=== PATIENT | male | born 1950 | race Caucasian/White ===

== ENCOUNTER 2018-09-08 09:54 | Outpatient (REF) | payer MEDICARE, OTHER, SELFPAY ==
[2018-09-08 19:44] LABS: Anion Gap 14.2 mmol/L (3-11); BUN 22 mg/dL (7-18); CO2 19.8 mmol/L (21.0-32.0); CREATININE 1.64 mg/dL (0.70-1.30); Calcium 9.4 mg/dL (8.5-10.1); Chloride 104 mmol/L (98-107); Estimated GFR 42.11 (mL/min/1.73m2); Glucose 230 mg/dL (70-100); Potassium 5.1 mmol/L (3.5-5.1); Sodium 138 mmol/L (136-145)
== END 2018-09-08 10:14 ==
LOC: NCHCN 09:54
PROVIDERS: PCP Internal Medicine; Visit Provider Physician Assistant Medical
DX: N18.3 Chronic kidney disease, stage 3 (moderate) (principal)
CPT/HCPCS: 80048

== ENCOUNTER 2018-10-08 10:23 | Outpatient (REF) | payer MEDICARE, OTHER, SELFPAY ==
[2018-10-08 20:30] LABS: Anion Gap 12.9 mmol/L (3-11); BUN 25 mg/dL (7-18); CO2 26.1 mmol/L (21.0-32.0); Calcium 8.4 mg/dL (8.5-10.1); Chloride 101 mmol/L (98-107); Estimated GFR 50.55 (mL/min/1.73m2); Glucose 260 mg/dL (70-100); Potassium 3.8 mmol/L (3.5-5.1); Sodium 140 mmol/L (136-145)
== END 2018-10-08 10:43 ==
LOC: NCHCN 10:23
PROVIDERS: PCP Internal Medicine; Visit Provider Physician Assistant Medical
DX: N18.3 Chronic kidney disease, stage 3 (moderate) (principal)
CPT/HCPCS: 80048

== ENCOUNTER 2018-11-05 15:45 | Outpatient (REF) | payer MEDICARE, OTHER, SELFPAY ==
[2018-11-05 20:24] LABS: Anion Gap 10.9 mmol/L (3-11); BUN 23 mg/dL (7-18); CO2 26.1 mmol/L (21.0-32.0); CREATININE 1.61 mg/dL (0.70-1.30); Chloride 100 mmol/L (98-107); Estimated GFR 43.02 (mL/min/1.73m2); Glucose 372 mg/dL (70-100); Potassium 4.3 mmol/L (3.5-5.1); Sodium 137 mmol/L (136-145)
== END 2018-11-05 16:05 ==
LOC: NCHCN 15:45
PROVIDERS: PCP Internal Medicine; Visit Provider Physician Assistant Medical
DX: N18.3 Chronic kidney disease, stage 3 (moderate) (principal); E11.9 Type 2 diabetes mellitus without complications
CPT/HCPCS: 80048

== ENCOUNTER 2019-02-03 12:49 | Outpatient (REF) | payer MEDICARE, OTHER, SELFPAY ==
[2019-02-03 19:08] LABS: BUN 28 mg/dL (7-18); CREATININE 1.72 mg/dL (0.70-1.30); Calcium 8.7 mg/dL (8.5-10.1); Chloride 103 mmol/L (98-107); Estimated GFR 39.86 (mL/min/1.73m2); Glucose 271 mg/dL (70-100); Potassium 5.4 mmol/L (3.5-5.1); Sodium 137 mmol/L (136-145)
== END 2019-02-03 13:09 ==
LOC: NCHCN 12:49
PROVIDERS: PCP Internal Medicine; Visit Provider Physician Assistant Medical
DX: N18.3 Chronic kidney disease, stage 3 (moderate) (principal); E11.9 Type 2 diabetes mellitus without complications; I10 Essential (primary) hypertension; Z79.4 Long term (current) use of insulin
CPT/HCPCS: 80048

== ENCOUNTER 2019-04-22 11:30 | Outpatient (REF) | payer MEDICARE, OTHER, SELFPAY ==
[2019-04-22 20:27] LABS: BUN 17 mg/dL (7-18); CREATININE 1.12 mg/dL (0.70-1.30); Calcium 8.6 mg/dL (8.5-10.1); Chloride 105 mmol/L (98-107); Glucose 104 mg/dL (70-100); Potassium 3.4 mmol/L (3.5-5.1); Sodium 146 mmol/L (136-145)
== END 2019-04-22 11:50 ==
LOC: NCHCN 11:30
PROVIDERS: PCP Internal Medicine; Visit Provider Physician Assistant Medical
DX: N18.3 Chronic kidney disease, stage 3 (moderate) (principal); E11.8 Type 2 diabetes mellitus with unspecified complications; Z79.4 Long term (current) use of insulin
CPT/HCPCS: 80048

== ENCOUNTER 2019-07-23 12:12 | Outpatient (REF) | payer MEDICARE, OTHER, SELFPAY ==
[2019-07-23 19:49] LABS: BUN 13 mg/dL (7-18); CREATININE 1.35 mg/dL (0.70-1.30); Calcium 8.5 mg/dL (8.5-10.1); Chloride 104 mmol/L (98-107); Estimated GFR 52.56 (mL/min/1.73m2); Glucose 123 mg/dL (70-100); Potassium 4.1 mmol/L (3.5-5.1); Sodium 143 mmol/L (136-145); Uric Acid 6.7 mg/dL (3.5-7.2)
== END 2019-07-23 12:32 ==
LOC: NCHCN 12:12
PROVIDERS: PCP Internal Medicine; Visit Provider Nurse Practitioner Family
DX: E11.8 Type 2 diabetes mellitus with unspecified complications (principal); I10 Essential (primary) hypertension; M10.9 Gout, unspecified
CPT/HCPCS: 80048; 84550

== ENCOUNTER 2019-10-22 14:52 | Outpatient (REF) | payer MEDICARE, OTHER, SELFPAY ==
[2019-10-22 20:19] LABS: COMMENT (LAB VIEW ONLY) 186.61 mg/dL
[2019-10-22 20:24] LABS: ALT 35 U/L (16-63); AST 19 U/L (15-37); Albumin 3.5 g/dL (3.4-5.0); Alkaline Phosphatase 104 U/L (46-116); Anion Gap 12.3 mmol/L (3-11); BUN 19 mg/dL (7-18); Bilirubin, Total 0.5 mg/dL (0.2-1.0); CO2 28.7 mmol/L (21.0-32.0); CREATININE 1.33 mg/dL (0.70-1.30); Calcium 8.9 mg/dL (8.5-10.1); Calculated LDL 101 mg/dL; Chloride 104 mmol/L (98-107); Cholesterol 167 mg/dL (<200); Estimated GFR 53.47 (mL/min/1.73m2); Glucose 126 mg/dL (74-106); HDL Cholesterol 34 mg/dL (40-60); Microalb ug/mg Crea 111.6 ug/mg Cr; Potassium 3.6 mmol/L (3.5-5.1); Sodium 145 mmol/L (136-145); TSH (W/Ref FT4) 4.02 uIU/mL (0.36-3.74); Triglyceride 163 mg/dL (<150)
[2019-10-22 20:46] LABS: FREE T4 0.79 ng/dL (0.76-1.46)
== END 2019-10-22 15:12 ==
LOC: NCHCN 14:52
PROVIDERS: PCP Internal Medicine; Visit Provider Physician Assistant
DX: I10 Essential (primary) hypertension (principal); E11.8 Type 2 diabetes mellitus with unspecified complications; Z79.4 Long term (current) use of insulin
CPT/HCPCS: 80053; 80061; 82043; 82570; 84439; 84443

== ENCOUNTER 2020-03-30 12:00 | Outpatient (REF) | payer MEDICARE, OTHER, SELFPAY ==
[2020-03-30 19:57] LABS: Anion Gap 10.5 mmol/L (3-11); BUN 19 mg/dL (7-18); CO2 28.5 mmol/L (21.0-32.0); CREATININE 1.25 mg/dL (0.70-1.30); Calcium 8.5 mg/dL (8.5-10.1); Calculated LDL 91 mg/dL (<100); Chloride 103 mmol/L (98-107); Cholesterol 158 mg/dL (<200); Estimated GFR 57.27 (mL/min/1.73m2); Glucose 138 mg/dL (74-106); HDL Cholesterol 39 mg/dL (40-60); Potassium 3.4 mmol/L (3.5-5.1); Sodium 142 mmol/L (136-145); TSH (W/Ref FT4) 3.47 uIU/mL (0.36-3.74); Triglyceride 142 mg/dL (<150)
== END 2020-03-30 12:20 ==
LOC: NCHCN 12:00
PROVIDERS: PCP Internal Medicine; Visit Provider Physician Assistant
DX: E78.5 Hyperlipidemia, unspecified (principal); E03.9 Hypothyroidism, unspecified; E11.8 Type 2 diabetes mellitus with unspecified complications; Z79.4 Long term (current) use of insulin
CPT/HCPCS: 80048; 80061; 84443

== ENCOUNTER 2020-06-30 19:36 | Outpatient (REF) | payer MEDICARE, OTHER, SELFPAY ==
[2020-06-30 19:46] LABS: TSH (W/Ref FT4) 3.39 uIU/mL (0.36-3.74)
== END 2020-06-30 19:56 ==
LOC: NCHCN 19:36
PROVIDERS: PCP Internal Medicine; Visit Provider Physician Assistant
DX: E03.9 Hypothyroidism, unspecified (principal)
CPT/HCPCS: 84443

== ENCOUNTER 2020-09-29 20:55 | Outpatient (REF) | payer MEDICARE, OTHER, SELFPAY ==
[2020-09-29 20:05] LABS: TSH (W/Ref FT4) 2.53 uIU/mL (0.36-3.74)
== END 2020-09-29 21:15 ==
LOC: NCHCN 20:55
PROVIDERS: PCP Internal Medicine; Visit Provider Physician Assistant
DX: E03.9 Hypothyroidism, unspecified (principal)
CPT/HCPCS: 84443

== ENCOUNTER 2020-12-28 16:02 | Outpatient (REF) | payer MEDICARE, OTHER, SELFPAY ==
[2020-12-28 18:28] LABS: COMMENT (LAB VIEW ONLY) 72.53 mg/dL
== END 2020-12-28 16:03 | disposition home or self-care (01) ==
LOC: NCHCN 16:02
PROVIDERS: PCP Internal Medicine; Visit Provider Physician Assistant
DX: E11.8 Type 2 diabetes mellitus with unspecified complications (principal); Z79.4 Long term (current) use of insulin
CPT/HCPCS: 82043; 82570

== ENCOUNTER 2021-01-05 21:59 | Outpatient (REF) | payer MEDICARE, OTHER, SELFPAY ==
[2021-01-05 21:19] LABS: Bilirubin Negative (Negative); Blood Trace-lysed (Negative); Clarity Clear (Clear); Glucose 100 mg/dL (Negative); Ketones Negative (Negative); Leukocyte Esterase Negative (Negative); Nitrite Negative (Negative); Urobilinogen 0.2 EU/dL (Up TO 0.2); pH 6.5 (5-8)
[2021-01-05 21:21] LABS: ALT 56 U/L (16-63); AST 34 U/L (15-37); Albumin 3.2 g/dL (3.4-5.0); Alkaline Phosphatase 84 U/L (46-116); Anion Gap 9.7 mmol/L (3-11); BUN 27 mg/dL (7-18); Bilirubin, Total 0.5 mg/dL (0.2-1.0); CO2 30.3 mmol/L (21.0-32.0); CREATININE 1.7 mg/dL (0.70-1.30); Calcium 9.1 mg/dL (8.5-10.1); Chloride 104 mmol/L (98-107); Estimated GFR 40.16 (mL/min/1.73m2); Glucose 222 mg/dL (74-106); Potassium 3.5 mmol/L (3.5-5.1); Sodium 144 mmol/L (136-145); Total Protein 6.4 g/dL (6.4-8.2)
[2021-01-05 21:26] LABS: Bacteria Negative HPF (Negative); C & S Indicated? No; Casts Negative LPF (Negative); Crystals Negative HPF (Negative); Epithelial Cells Negative HPF (Negative); Mucus Negative (Negative); Other Cells Negative (Negative); RBC 0-2 HPF (0-2); WBC 0-2 HPF (0-5)
[2021-01-05 21:38] LABS: PROTEIN 308.3 mg/dL
[2021-01-05 21:44] LABS: COMMENT (LAB VIEW ONLY) 43.18 mg/dL; Prot/Crea Ur Ratio 7.13
[2021-01-09 09:07] LABS: C3 Complement 179 mg/dL (81-157); C4 Complement 43 mg/dL (13-39)
[2021-01-09 11:25] LABS: Hepatitis C Ab w Rflx HCV PCR Negative (Negative)
[2021-01-09 15:49] LABS: Albumin 55.2 % (55.8-66.1); Total Protein 6.1 g/dL (6.3-8.2)
[2021-01-09 16:02] LABS: Albumin, Urine % 72.7 %; Globulins, Urine % 27.3 %; Immunotyping, Urine (See Note); Total Protein Urine 433 mg/dL (See Note)
== END 2021-01-05 22:00 | disposition home or self-care (01) ==
LOC: NCHCN 21:59
PROVIDERS: PCP Internal Medicine; Visit Provider Physician Assistant
DX: R80.9 Proteinuria, unspecified (principal); E11.8 Type 2 diabetes mellitus with unspecified complications; Z79.4 Long term (current) use of insulin; N18.30 Chronic kidney disease, stage 3 unspecified
CPT/HCPCS: 80053; 84156; 84166; 86335; 86803; 81003; 81015; 82565; 84165; 86160

== ENCOUNTER 2021-01-10 03:45 | Outpatient (CLI) | payer MEDICARE, OTHER, SELFPAY ==
[2021-01-12 13:39] LABS: Cryoglobulin, S Negative %ppt (Negative)
== END 2021-01-10 03:46 | disposition home or self-care (01) ==
LOC: LBO 03:45
PROVIDERS: PCP Internal Medicine; Visit Provider Internal Medicine
DX: N04.9 Nephrotic syndrome with unspecified morphologic changes (principal)
CPT/HCPCS: 36415; 82595

== ENCOUNTER 2021-01-12 14:19 | Outpatient (REF) | payer MEDICARE, OTHER, SELFPAY ==
[2021-01-12 19:21] LABS: PROTEIN 186.4 mg/dL (0.0-11.9)
[2021-01-12 19:24] LABS: Total Volume 2800 ml
== END 2021-01-12 14:20 | disposition home or self-care (01) ==
LOC: NCHCN 14:19
PROVIDERS: Physician Assistant; PCP Internal Medicine; Visit Provider Internal Medicine
DX: N04.9 Nephrotic syndrome with unspecified morphologic changes (principal)
CPT/HCPCS: 81050; 84155

== ENCOUNTER 2021-05-12 19:55 | Outpatient (REF) | payer MEDICARE, OTHER, SELFPAY ==
[2021-05-12 20:51] LABS: Anion Gap 10.9 mmol/L (3-11); BUN 24 mg/dL (7-18); CO2 26.1 mmol/L (21.0-32.0); CREATININE 1.6 mg/dL (0.70-1.30); Calcium 9.3 mg/dL (8.5-10.1); Chloride 106 mmol/L (98-107); Estimated GFR 42.95 (mL/min/1.73m2); Glucose 177 mg/dL (74-106); Potassium 4.3 mmol/L (3.5-5.1); Sodium 143 mmol/L (136-145)
== END 2021-05-12 19:56 | disposition home or self-care (01) ==
LOC: LBN 19:55
PROVIDERS: PCP Internal Medicine; Visit Provider Internal Medicine Nephrology
DX: E78.5 Hyperlipidemia, unspecified (principal); M10.9 Gout, unspecified; R80.9 Proteinuria, unspecified; E66.9 Obesity, unspecified; N18.30 Chronic kidney disease, stage 3 unspecified; E11.21 Type 2 diabetes mellitus with diabetic nephropathy; Z79.4 Long term (current) use of insulin; E55.9 Vitamin D deficiency, unspecified
CPT/HCPCS: 80048

== ENCOUNTER 2021-10-26 18:24 | Outpatient (REF) | payer MEDICARE, OTHER, SELFPAY ==
[2021-10-26 19:44] LABS: Anion Gap 11.2 mmol/L (3-11); BUN 33 mg/dL (7-18); CO2 26.8 mmol/L (21.0-32.0); CREATININE 2.1 mg/dL (0.70-1.30); Chloride 103 mmol/L (98-107); Estimated GFR 31.38 (mL/min/1.73m2); Glucose 114 mg/dL (74-106); Potassium 4.4 mmol/L (3.5-5.1); Sodium 141 mmol/L (136-145); TSH (W/Ref FT4) 2.59 uIU/mL (0.36-3.74)
== END 2021-10-26 18:25 | disposition home or self-care (01) ==
LOC: NCHCN 18:24
PROVIDERS: PCP Internal Medicine; Visit Provider Physician Assistant
DX: I10 Essential (primary) hypertension (principal); E03.9 Hypothyroidism, unspecified
CPT/HCPCS: 80048; 84443

== ENCOUNTER 2022-07-24 15:40 | Outpatient (REF) | payer MEDICARE, OTHER, SELFPAY ==
[2022-07-24 19:08] LABS: ALT 66 U/L (16-63); AST 40 U/L (15-37); Albumin 3.7 g/dL (3.4-5.0); Alkaline Phosphatase 84 U/L (46-116); Anion Gap 10.8 mmol/L (3-11); BUN 34 mg/dL (7-18); Bilirubin, Total 0.7 mg/dL (0.2-1.0); CO2 27.2 mmol/L (21.0-32.0); Calcium 9.2 mg/dL (8.5-10.1); Chloride 104 mmol/L (98-107); Estimated GFR 35.02 (mL/min/1.73m2); Glucose 132 mg/dL (74-106); Potassium 4.2 mmol/L (3.5-5.1); Sodium 142 mmol/L (136-145); TSH (W/Ref FT4) 4.77 uIU/mL (0.36-3.74); Total Protein 7.3 g/dL (6.4-8.2)
[2022-07-24 19:41] LABS: FREE T4 1.08 ng/dL (0.76-1.46)
== END 2022-07-24 15:41 | disposition home or self-care (01) ==
LOC: NCHCN 15:40
PROVIDERS: PCP Internal Medicine; Visit Provider Physician Assistant
DX: I10 Essential (primary) hypertension (principal); E03.9 Hypothyroidism, unspecified; E11.8 Type 2 diabetes mellitus with unspecified complications; Z79.4 Long term (current) use of insulin
CPT/HCPCS: 80053; 84439; 84443

== ENCOUNTER 2022-10-24 09:13 | Outpatient (REF) | payer MEDICARE, OTHER, SELFPAY ==
[2022-10-24 22:08] LABS: TSH 3.54 uIU/mL (0.36-3.74)
== END 2022-10-24 09:14 | disposition home or self-care (01) ==
LOC: NCHCN 09:13
PROVIDERS: PCP Internal Medicine; Visit Provider Physician Assistant
DX: E03.9 Hypothyroidism, unspecified (principal); E11.8 Type 2 diabetes mellitus with unspecified complications; Z79.4 Long term (current) use of insulin; I10 Essential (primary) hypertension; N18.30 Chronic kidney disease, stage 3 unspecified
CPT/HCPCS: 84443

== ENCOUNTER 2022-11-19 13:37 | Outpatient (REF) | payer MEDICARE, OTHER, SELFPAY ==
[2022-11-19 19:07] LABS: HCT 41.3 % (40.0-50.0); HGB 13.7 g/dL (13.5-17.5); MCH 29.9 pg (27.0-33.0); MCHC 33.2 % (32.0-36.0); MCV 90 fL (80-95); MPV 11.9 fL (8.0-11.0); Platelet Count 229 10^3/uL (130-400); RBC 4.58 10^6/uL (4.36-5.78); RDW 13.6 % (11.8-14.1); RDW-SD 44.7 fL; WBC 8.47 10^3/uL (4.4-10.8)
[2022-11-19 19:17] LABS: Iron 65 ug/dL (65-175); Total Iron Binding Capacity 326 ug/dL (250-450); Transferrin Sat 20 % (20-55)
[2022-11-19 19:27] LABS: COMMENT (LAB VIEW ONLY) 18.11 mg/dL; PROTEIN < 6.0 mg/dL
[2022-11-19 19:35] LABS: Albumin 3.8 g/dL (3.4-5.0); PHOSPHORUS 3.9 mg/dL (2.6-4.7); Uric Acid 8.7 mg/dL (3.5-7.2)
[2022-11-19 19:42] LABS: Vitamin D 25 Total 30.3 ng/mL (30-100)
[2022-11-19 20:04] LABS: Calculated LDL 35 mg/dL (<100); Cholesterol 109 mg/dL (<200); Ferritin 145 ng/mL (26-388); HDL Cholesterol 42 mg/dL (40-60); Hemoglobin A1C 6.6 % (<5.7); Triglyceride 163 mg/dL (<150)
[2022-11-20 19:33] LABS: Parathyroid Hormone,Intact 134 pg/mL (19-88)
== END 2022-11-19 13:38 | disposition home or self-care (01) ==
LOC: NCHCN 13:37
PROVIDERS: PCP Internal Medicine; Visit Provider Physician Assistant
DX: E03.9 Hypothyroidism, unspecified (principal); E11.8 Type 2 diabetes mellitus with unspecified complications; R80.9 Proteinuria, unspecified; I10 Essential (primary) hypertension; E78.5 Hyperlipidemia, unspecified; M10.9 Gout, unspecified
CPT/HCPCS: 80061; 82306; 85027; 82040; 82565; 82728; 83036; 83540; 83550; 83970; 84100; 84156; 84550

== ENCOUNTER 2023-05-01 13:15 | Outpatient (REF) | payer MEDICARE, OTHER, SELFPAY ==
[2023-05-01 20:21] LABS: Abs Immature Grans 0.15 10^3/uL (0.0-0.06); Absolute Basophil Count 0.09 10^3/uL (0.0-0.2); Absolute Eosinophil Count 0.08 10^3/uL (0.0-0.7); Absolute Lymphocyte Count 2.31 10^3/uL (1.2-3.4); Absolute Neutrophil Count 7.99 10^3/uL (1.2-6.7); Basophils % 0.8; Eosinophils % 0.7; HCT 43.3 % (40.0-50.0); HGB 14.1 g/dL (13.5-17.5); Immature Grans % 1.3; Lymphocytes % 20.4; MCH 29.7 pg (27.0-33.0); MCHC 32.6 % (32.0-36.0); MCV 91 fL (80-95); MPV 12.1 fL (8.0-11.0); Monocytes % 6.2; Neutrophils % 70.6; Platelet Count 265 10^3/uL (130-400); RBC 4.74 10^6/uL (4.36-5.78); RDW 14.1 % (11.8-14.1); RDW-SD 47.8 fL; WBC 11.32 10^3/uL (4.4-10.8)
[2023-05-01 20:41] LABS: ALT 67 U/L (16-63); AST 43 U/L (15-37); Albumin 3.8 g/dL (3.4-5.0); Alkaline Phosphatase 74 U/L (46-116); Anion Gap 9.8 mmol/L (3-11); BUN 38 mg/dL (7-18); Bilirubin, Total 0.7 mg/dL (0.2-1.0); CO2 27.2 mmol/L (21.0-32.0); CREATININE 2.5 mg/dL (0.70-1.30); Calcium 9.3 mg/dL (8.5-10.1); Chloride 106 mmol/L (98-107); Estimated GFR 26.63 (mL/min/1.73m2); Glucose 157 mg/dL (74-106); Potassium 5.6 mmol/L (3.5-5.1); Sodium 143 mmol/L (136-145); TSH (W/Ref FT4) 4.71 uIU/mL (0.36-3.74); Total Protein 7.3 g/dL (6.4-8.2); Uric Acid 8.5 mg/dL (3.5-7.2)
[2023-05-01 20:58] LABS: FREE T4 0.97 ng/dL (0.76-1.46)
== END 2023-05-01 13:16 | disposition home or self-care (01) ==
LOC: NCHCN 13:15
PROVIDERS: PCP Internal Medicine; Visit Provider Physician Assistant
DX: I10 Essential (primary) hypertension (principal); M10.9 Gout, unspecified; E03.9 Hypothyroidism, unspecified
CPT/HCPCS: 80053; 84439; 84443; 84550; 85025

== ENCOUNTER 2023-05-15 11:28 | Outpatient (REF) | payer MEDICARE, OTHER, SELFPAY ==
[2023-05-15 20:36] LABS: Anion Gap 7.5 mmol/L (3-11); BUN 26 mg/dL (7-18); CO2 29.5 mmol/L (21.0-32.0); CREATININE 1.8 mg/dL (0.70-1.30); Calcium 8.4 mg/dL (8.5-10.1); Chloride 109 mmol/L (98-107); Glucose 108 mg/dL (74-106); Potassium 4.4 mmol/L (3.5-5.1); Sodium 146 mmol/L (136-145)
== END 2023-05-15 11:29 | disposition home or self-care (01) ==
LOC: NCHCN 11:28
PROVIDERS: PCP Internal Medicine; Visit Provider Physician Assistant
DX: E87.6 Hypokalemia (principal); N18.30 Chronic kidney disease, stage 3 unspecified
CPT/HCPCS: 80048

== ENCOUNTER 2023-06-18 13:40 | Outpatient (REF) | payer MEDICARE, OTHER, SELFPAY ==
[2023-06-18 19:56] LABS: Anion Gap 12.1 mmol/L (3-11); BUN 49 mg/dL (7-18); CO2 23.9 mmol/L (21.0-32.0); CREATININE 2.4 mg/dL (0.70-1.30); Calcium 8.8 mg/dL (8.5-10.1); Chloride 103 mmol/L (98-107); Estimated GFR 27.97 (mL/min/1.73m2); Glucose 175 mg/dL (74-106); Potassium 4.6 mmol/L (3.5-5.1); Sodium 139 mmol/L (136-145); Vitamin B12 436 pg/mL (193-986)
== END 2023-06-18 13:41 | disposition home or self-care (01) ==
LOC: NCHCN 13:40
PROVIDERS: PCP Internal Medicine; Visit Provider Physician Assistant
DX: E87.6 Hypokalemia (principal); N18.30 Chronic kidney disease, stage 3 unspecified; R53.83 Other fatigue; Z86.39 Personal history of other endocrine, nutritional and metabolic disease
CPT/HCPCS: 80048; 82607

== ENCOUNTER 2023-07-30 14:12 | Outpatient (REF) | payer MEDICARE, OTHER, SELFPAY ==
[2023-07-30 19:19] LABS: COMMENT (LAB VIEW ONLY) 51.15 mg/dL; PROTEIN < 6.0 mg/dL
[2023-07-30 19:35] LABS: Abs Immature Grans 0.13 10^3/uL (0.0-0.06); Absolute Basophil Count 0.07 10^3/uL (0.0-0.2); Absolute Eosinophil Count 0.09 10^3/uL (0.0-0.7); Absolute Lymphocyte Count 2.19 10^3/uL (1.2-3.4); Absolute Monocyte Count 0.58 10^3/uL (0.1-0.8); Basophils % 0.7; HCT 41.8 % (40.0-50.0); HGB 13.8 g/dL (13.5-17.5); Immature Grans % 1.4; Iron 76 ug/dL (65-175); Lymphocytes % 23.2; MCH 29.6 pg (27.0-33.0); MCV 90 fL (80-95); MPV 11.9 fL (8.0-11.0); Monocytes % 6.1; Neutrophils % 67.6; Platelet Count 244 10^3/uL (130-400); RBC 4.67 10^6/uL (4.36-5.78); RDW 14.6 % (11.8-14.1); RDW-SD 47.4 fL; Total Iron Binding Capacity 327 ug/dL (250-450); Transferrin Sat 23 % (20-55); WBC 9.46 10^3/uL (4.4-10.8)
[2023-07-30 19:56] LABS: ALT 57 U/L (16-63); AST 32 U/L (15-37); Albumin 3.6 g/dL (3.4-5.0); Alkaline Phosphatase 73 U/L (46-116); Anion Gap 11.1 mmol/L (3-11); BUN 52 mg/dL (7-18); Bilirubin, Total 0.6 mg/dL (0.2-1.0); CO2 22.9 mmol/L (21.0-32.0); CREATININE 2.4 mg/dL (0.70-1.30); Calcium 9.1 mg/dL (8.5-10.1); Calculated LDL 31 mg/dL (<100); Chloride 105 mmol/L (98-107); Cholesterol 99 mg/dL (<200); Estimated GFR 27.97 (mL/min/1.73m2); Ferritin 138 ng/mL (26-388); Glucose 152 mg/dL (74-106); HDL Cholesterol 39 mg/dL (40-60); PHOSPHORUS 3.8 mg/dL (2.6-4.7); Potassium 4.7 mmol/L (3.5-5.1); Sodium 139 mmol/L (136-145); TSH (W/Ref FT4) 2.92 uIU/mL (0.36-3.74); Total Protein 7.5 g/dL (6.4-8.2); Triglyceride 149 mg/dL (<150)
[2023-07-30 19:58] LABS: Vitamin D 25 Total 25.6 ng/mL (30-100)
[2023-07-30 20:08] LABS: Uric Acid 7.5 mg/dL (3.5-7.2)
[2023-07-31 19:56] LABS: Parathyroid Hormone,Intact 98 pg/mL (19-88)
== END 2023-07-30 14:13 | disposition home or self-care (01) ==
LOC: NCHCN 14:12
PROVIDERS: PCP Internal Medicine; Visit Provider Physician Assistant
DX: I10 Essential (primary) hypertension (principal); E11.8 Type 2 diabetes mellitus with unspecified complications; N18.30 Chronic kidney disease, stage 3 unspecified; R80.9 Proteinuria, unspecified; E03.9 Hypothyroidism, unspecified; E78.5 Hyperlipidemia, unspecified
CPT/HCPCS: 80053; 80061; 82306; 82565; 82728; 83540; 83550; 83970; 84100; 84156; 84443; 84550; 85025

== ENCOUNTER 2023-10-29 12:33 | Outpatient (REF) | payer MEDICARE, OTHER, SELFPAY ==
[2023-10-29 20:44] LABS: Hemoglobin A1C 7.2 % (<5.7)
== END 2023-10-29 12:34 | disposition home or self-care (01) ==
LOC: NCHCN 12:33
PROVIDERS: PCP Internal Medicine; Visit Provider Physician Assistant
DX: E11.8 Type 2 diabetes mellitus with unspecified complications (principal)
CPT/HCPCS: 83036

== ENCOUNTER 2024-02-21 09:16 | Outpatient (REF) | payer MEDICARE, OTHER, SELFPAY ==
[2024-02-21 18:50] LABS: Anion Gap 10.2 mmol/L (3-11); BUN 47 mg/dL (7-18); CO2 26.8 mmol/L (21.0-32.0); CREATININE 2.2 mg/dL (0.70-1.30); Calcium 9.2 mg/dL (8.5-10.1); Chloride 105 mmol/L (98-107); Estimated GFR 31.05 (mL/min/1.73m2); Glucose 179 mg/dL (74-106); Potassium 4.4 mmol/L (3.5-5.1); Sodium 142 mmol/L (136-145)
== END 2024-02-21 09:17 | disposition home or self-care (01) ==
LOC: LBN 09:16
PROVIDERS: PCP Internal Medicine; Visit Provider Registered Nurse
DX: N18.30 Chronic kidney disease, stage 3 unspecified (principal)
CPT/HCPCS: 80048

== ENCOUNTER 2024-04-30 10:56 | Outpatient (REF) | payer MEDICARE, OTHER, SELFPAY ==
[2024-04-30 19:34] LABS: Anion Gap 7.9 mmol/L (3-11); BUN 78 mg/dL (7-18); CO2 29.1 mmol/L (21.0-32.0); CREATININE 2.6 mg/dL (0.70-1.30); Calcium 9.2 mg/dL (8.5-10.1); Chloride 105 mmol/L (98-107); Estimated GFR 25.25 (mL/min/1.73m2); Glucose 159 mg/dL (74-106); Sodium 142 mmol/L (136-145)
== END 2024-04-30 10:57 | disposition home or self-care (01) ==
LOC: LBN 10:56
PROVIDERS: PCP Internal Medicine; Visit Provider Physician Assistant
DX: N18.4 Chronic kidney disease, stage 4 (severe) (principal)
CPT/HCPCS: 80048

== ENCOUNTER 2024-11-06 14:44 | Outpatient (REF) | payer MEDICARE, OTHER, SELFPAY ==
[2024-11-06 19:47] LABS: BUN 38 mg/dL (7-18); Calcium 9.6 mg/dL (8.5-10.1); Chloride 108 mmol/L (98-107); Estimated GFR 34.59 (mL/min/1.73m2); Glucose 160 mg/dL (74-106); Potassium 4.2 mmol/L (3.5-5.1); Sodium 144 mmol/L (136-145)
== END 2024-11-06 14:45 | disposition home or self-care (01) ==
LOC: NCHCN 14:44
PROVIDERS: PCP Internal Medicine; Visit Provider Physician Assistant
DX: N18.30 Chronic kidney disease, stage 3 unspecified (principal)
CPT/HCPCS: 80048

== ENCOUNTER 2024-11-25 13:20 | Outpatient (REF) | payer MEDICARE, OTHER, SELFPAY ==
[2024-11-25 20:49] LABS: Anion Gap 3.4 mmol/L (3-11); BUN 28 mg/dL (7-18); CO2 34.6 mmol/L (21.0-32.0); Calcium 9.3 mg/dL (8.5-10.1); Chloride 107 mmol/L (98-107); Estimated GFR 34.59 (mL/min/1.73m2); Glucose 142 mg/dL (74-106); Potassium 4.6 mmol/L (3.5-5.1); Sodium 145 mmol/L (136-145); TSH (W/Ref FT4) 4.52 uIU/mL (0.36-3.74)
[2024-11-25 21:08] LABS: FREE T4 1.04 ng/dL (0.76-1.46)
== END 2024-11-25 13:21 | disposition home or self-care (01) ==
LOC: NCHCN 13:20
PROVIDERS: PCP Internal Medicine; Visit Provider Physician Assistant
DX: E03.9 Hypothyroidism, unspecified (principal)
CPT/HCPCS: 80048; 84439; 84443

== ENCOUNTER 2025-02-10 19:08 | Outpatient (REF) | payer MEDICARE, OTHER, SELFPAY ==
[2025-02-10 20:36] LABS: Anion Gap 7.5 mmol/L (3-11); BUN 37 mg/dL (7-18); CO2 31.5 mmol/L (21.0-32.0); CREATININE 2.3 mg/dL (0.70-1.30); Calcium 9.3 mg/dL (8.5-10.1); Chloride 106 mmol/L (98-107); Estimated GFR 29.25 (mL/min/1.73m2); Glucose 163 mg/dL (74-106); Potassium 4.9 mmol/L (3.5-5.1); Sodium 145 mmol/L (136-145); TSH (W/Ref FT4) 4.14 uIU/mL (0.36-3.74)
[2025-02-10 20:52] LABS: FREE T4 1.09 ng/dL (0.76-1.46)
[2025-02-11 19:22] LABS: PSA, Diagnostic 0.6 ng/mL (<=6.5)
== END 2025-02-10 19:09 | disposition home or self-care (01) ==
LOC: NCHCN 19:08
PROVIDERS: PCP Internal Medicine; Visit Provider Physician Assistant
DX: E03.9 Hypothyroidism, unspecified (principal); E11.8 Type 2 diabetes mellitus with unspecified complications; Z80.42 Family history of malignant neoplasm of prostate
CPT/HCPCS: 80048; 84153; 84439; 84443

== ENCOUNTER 2025-04-07 11:21 | Outpatient (REF) | payer MEDICARE, OTHER, SELFPAY ==
[2025-04-07 22:00] LABS: TSH (W/Ref FT4) 2.63 uIU/mL (0.36-3.74)
== END 2025-04-07 11:22 | disposition home or self-care (01) ==
LOC: NCHCN 11:21
PROVIDERS: PCP Internal Medicine; Visit Provider Physician Assistant
DX: E03.9 Hypothyroidism, unspecified (principal)
CPT/HCPCS: 84443